=== PATIENT | male | born 1980 | race Caucasian/White ===

== ENCOUNTER 2017-03-24 13:26 | Emergency (ER) | payer OTHER ==
[~2017-03-24 13:26] MED LIST: ALBU1AER INH; BENZ100 PO; PRED20 PO
[2017-03-24 13:45] VITALS: BP 144/85; PULSE 110; RESP 20; TEMP 97.8; O2SAT 99
[2017-03-24] MEDS ORDERED: ACETAMINOPHEN/HYDROcodone 325 MG/5 MG TAB PO ONE (13:45)
--- NOTE | 2017-03-24 13:48 | PD ---
HPI Chief Complaint: Injury Time Seen by Provider: 13:45 Travel History International Travel<30 days: No Contact w/Intl Traveler<30days: No Traveled to known affect area: No History of Present Illness HPI 36-year-old male presents to the ER today, states he was lifting a water heater when he felt pain in his left shoulder. He is currently complaining of 7 out of 10 pain. He states it hurts with movements. He denies any other issues or injuries. Modifying Factors: None Associated Signs & Symptoms: Left shoulder pain, injury Risk Factors: None PFSH Past Medical History Diminished Hearing: No Kidney Stones: Yes Immunizations Current: No Past Surgical History Genitourinary Surgery: Yes (KIDNEY STENTS 2014 FOR STONES) Other Surgery: Yes (LITHOTRIPSY 03/12/2015) Social History Alcohol Use: Yes (VERY RARE - LESS THAN ONCE A MONTH ) Tobacco Use: Yes (<1 PPD) Substance Use: No Allergies-Medications (Allergen,Severity, Reaction): Coded Allergies: No Known Allergies (Unverified , 03/24/17) Reported Meds & Prescriptions Reported Meds & Active Scripts Active Lortab (Hydrocodone-Acetaminophen) 5-325 Mg Tab 1-2 Tab PO Q6H PRN Review of Systems Except as stated in HPI: all other systems reviewed are Neg Physical Exam Narrative GENERAL: Well-nourished, well-developed young white male patient in moderate distress. Awake and oriented 3.. SKIN: Focused skin assessment warm/dry. HEAD: Normocephalic. EYES: No scleral icterus. No injection or drainage. NECK: Supple, trachea midline. CARDIOVASCULAR: Regular rate and rhythm without murmurs, gallops, or rubs. RESPIRATORY: Breath sounds equal bilaterally. No accessory muscle use. GASTROINTESTINAL: Abdomen soft, non-tender, nondistended. EXTREMITIES: No clubbing, cyanosis, or edema. No joint tenderness, effusion, or edema noted. There is tenderness on palpation of the left lateral shoulder area at the proximal biceps area. No obvious deformities identified. Pain with shoulder ranging. Pulses are present and equal bilaterally. MUSCULOSKELETAL: No cyanosis, or edema. BACK: Nontender without obvious deformity. No CVA tenderness. Data Data Last Documented VS Vital Signs Date Time Temp Pulse Resp B/P Pulse Ox O2 Delivery O2 Flow Rate FiO2 03/24/17 16:20 79 16 148/79 98 Room Air 03/24/17 14:35 28 03/24/17 14:35 2.00 03/24/17 13:45 97.8 Orders Acetamin-Hydrocod 325-5 Mg ([place] 5-325 (03/24/17 13:45) Shoulder, Limited(2vws) (03/24/17 13:45) Hydromorphone Pf Inj (Dilaudid Pf Inj) (03/24/17 14:15) Ondansetron Inj (Zofran Inj) (03/24/17 14:15) Etomidate Inj (Amidate Inj) (03/24/17 14:15) Shoulder, Limited(2vws) (03/24/17 14:39) Ct Shoulder W/O Contrast (03/24/17 ) MDM Medical Decision Making Medical Screen Exam Complete: Yes Emergency Medical Condition: Yes Medical Record Reviewed: Yes Interpretation(s) Last 24 hours Impressions Shoulder X-Ray 03/24/17 1439 Signed Impressions: Service Date/Time: Friday, March 24, 2017 14:52 - CONCLUSION: Inferiorly displaced fracture of the greater tuberosity. Glenohumeral joint is now relocated. Bharat Aguilar MD Shoulder X-Ray 03/24/17 1345 Signed Impressions: Service Date/Time: Friday, March 24, 2017 13:55 - CONCLUSION: Anterior inferior dislocation of the glenohumeral joint with a questionable fracture posteriorly Bharat Aguilar MD Upper Extremity CT 03/24/17 0000 Draft Impressions: Service Date/Time: Friday, March 24, 2017 15:59 - CONCLUSION: Oblique slightly impacted fracture involving the entire greater tuberosity as described above Bharat Aguilar MD Differential Diagnosis Rotator cuff injury versus muscle strain versus acute fractures Narrative Course X-ray shows dislocation of the shoulder with notable Hill-Sachs fracture and posterior element notable on initial x-ray. Shoulder reduction was done under conscious sedation with Dr. Brown. Repeat x-ray was done showing good alignment and now is showing fracture of the greater tuberosity more clearly, shoulder reduction was successful. Case was discussed with Dr. Saunders who states that he would like me to do a CT of the shoulder for further evaluation of the fracture and he states that the patient will likely need further orthopedic surgery for this issue but that the patient can follow-up in his office in a few days. Patient is observed until completely awake and released with a sling and follow-up to orthopedics. Return for new issues as needed. The plan was discussed with the patient and he states understanding. Procedures Procedure Narrative Shoulder reduction: Patient is placed under conscious sedation with etomidate, please see sedation note by Dr. Brown. The left shoulder was reduced via traction countertraction method. Patient tolerated procedure well. X-ray was done which shows successful reduction. Diagnosis Primary Impression: Shoulder dislocation Additional Impression: Hill-Sachs fracture of left humerus Referrals: Twin Mehta MD Med/Other Pt SpecificInfo: Prescription(s) given Scripts Hydrocodone-Acetaminophen (Lortab)5-325 Mg Tab1-2 Tab PO Q6H PRN (PAIN) #20 TAB Ref 0 Prov:Jalen Boateng MD 03/24/17 Disposition: 01 DISCHARGE HOME Condition: Stable Jalen Boateng MD Mar 24, 2017 13:48
--- NOTE | 2017-03-24 14:08 | RADRPT ---
EXAM DATE/TIME: 03/24/2017 13:55 [facility] COMPARISON: No previous studies available for comparison. INDICATIONS : Left shoulder pain after picking up hot water heater MEDICAL HISTORY : None. SURGICAL HISTORY : None. ENCOUNTER: Initial ACUITY: 1 day PAIN SCORE: 10/10 LOCATION: Left shoulder FINDINGS: Two view examination of the left shoulder demonstrates anterior inferior shoulder dislocation of the glenohumeral joint. The there may be additional large Hill-Sachs fracture. Bony mineralization is no rmal. CONCLUSION: Anterior inferior dislocation of the glenohumeral joint with a questionable fracture posteriorly Bharat Aguilar MD on March 24, 2017 at 14:05 Board Certified Radiologist. This report was verified electronically.
[2017-03-24] MEDS ORDERED: ONDANSETRON HCL 4 MG/2 ML VIAL IV PUSH ONE (14:15)
[2017-03-24] MEDS ORDERED: ETOMIDATE 20 MG/10 ML VIAL IV PUSH ONE (14:15)
[2017-03-24] MEDS ORDERED: HYDROmorphone HCL PF 1 MG/ML VIAL IV PUSH ONE (14:15)
[2017-03-24 14:35] VITALS: O2SAT 98
--- NOTE | 2017-03-24 14:42 | PD ---
Data Data Last Documented VS Vital Signs Date Time Temp Pulse Resp B/P Pulse Ox O2 Delivery O2 Flow Rate FiO2 03/24/17 13:45 97.8 110 20 144/85 99 Orders Acetamin-Hydrocod 325-5 Mg ([place] 5-325 (03/24/17 13:45) Shoulder, Limited(2vws) (03/24/17 13:45) Hydromorphone Pf Inj (Dilaudid Pf Inj) (03/24/17 14:15) Ondansetron Inj (Zofran Inj) (03/24/17 14:15) Etomidate Inj (Amidate Inj) (03/24/17 14:15) Shoulder, Limited(2vws) (03/24/17 14:39) MDM Supervised Visit with ARSALAN: No Procedures Procedure Narrative After the risks and benefits were discussed the following procedure was performed: MODERATE SEDATION: The patient was placed on a lunchroom monitor and pulse oximetry. An ambu bag and suction was immediately available at bedside. The patient was monitored by the nurse and respiratory therapy. Oxygen saturation, heart rate and blood pressure were monitored. Procedural sedation was acheived using etomidate. The patient was observed until awake and alert. Procedural Sedation time in attendance was 10 minutes. Diagnosis Primary Impression: Shoulder dislocation Scripts No Active Prescriptions or Reported Meds Tonya Ambriz MD Mar 24, 2017 14:41
[2017-03-24 15:00] VITALS: BP 133/92; PULSE 77; RESP 16; O2SAT 98
--- NOTE | 2017-03-24 15:11 | RADRPT ---
EXAM DATE/TIME: 03/24/2017 14:52 [facility] COMPARISON: SHOULDER LEFT LTD (2VWS), March 24, 2017, 13:55. INDICATIONS : Post reduction left shoulder MEDICAL HISTORY : None. SURGICAL HISTORY : None. ENCOUNTER: Subsequent ACUITY: 1 day PAIN SCORE: 0/10 LOCATION: Left shoulder FINDINGS: Two view examination of the left shoulder demonstrates no evidence of dislocation. There is a inferio rly displaced fracture involving the greater tuberosity measuring 4.0 x 1.9 cm. The glenohumeral an d acromioclavicular joints are now maintained. Bony mineralization is normal. CONCLUSION: Inferiorly displaced fracture of the greater tuberosity. Glenohumeral joint is now relocated. Bharat Aguilar MD on March 24, 2017 at 15:08 Board Certified Radiologist. This report was verified electronically.
[2017-03-24] MEDS ORDERED: HYDR-3533 PO (16:09)
[2017-03-24 16:20] VITALS: BP 148/79; PULSE 79; RESP 16; O2SAT 98
--- NOTE | 2017-03-24 16:47 | RADRPT ---
EXAM DATE/TIME: 03/24/2017 15:59 [facility] COMPARISON: No previous studies available for comparison. INDICATIONS : Trauma, injury while moving a water heater. Post reduction from dislocation. RADIATION DOSE: 19.58 CTDIvol (mGy) MEDICAL HISTORY : None SURGICAL HISTORY : None. ENCOUNTER: Initial ACUITY: 1 day PAIN SCALE: 9/10 LOCATION: Left proximal humerus TECHNIQUE: Volumetric scanning of the shoulder was performed. Using automated exposure control and adjustment o f the mA and/or kV according to patient size, radiation dose was kept as low as reasonably achievable to obtain optimal diagnostic quality images. DICOM format image data is available electronically f or review and comparison. FINDINGS: BONES: There is a pericardial fracture through the greater tuberosity. On the coronal images the bone fragme nt measures 1.5 x 3.2 cm across. It measures 3.6 cm in AP dimension and involves a majority of the ro tator cuff insertion. The glenoid is intact. JOINTS: No evidence of joint narrowing or effusion. The lateral clavicle is superiorly displaced from the acr omion could be chronic. SOFT TISSUES: Muscles, tendons, and neurovascular structures are grossly unremarkable. The integrity of the rotato r cuff tendons cannot be reliably evaluated on CT without intra-articular contrast. No evidence of m ass, organized fluid collection, or foreign body. CONCLUSION: Oblique slightly impacted fracture involving the entire greater tuberosity as described above Bharat Aguilar MD on March 24, 2017 at 16:43 Board Certified Radiologist. This report was verified electronically.
== END 2017-03-24 17:05 | disposition home or self-care (01) ==
LOC: PHED 13:26
DX: S43.085A Other dislocation of left shoulder joint, initial encounter (principal); S42.292A Other displaced fracture of upper end of left humerus, initial encounter for closed fracture; X50.9XXA Other and unspecified overexertion or strenuous movements or postures, initial encounter; Y93.89 Activity, other specified
CPT/HCPCS: 23650; 73030; 73200; 96374; 96375; 99152; 99285; J1170; J2405

== ENCOUNTER 2017-04-21 10:12 | Emergency (ER) | payer OTHER ==
[~2017-04-21] VITALS: Ht 185.4 cm; Wt 88.5 kg
[~2017-04-21 10:12] MED LIST changes: -ALBU1AER INH; -BENZ100 PO; +HYDR-3533 PO; -PRED20 PO
[2017-04-21 10:13] VITALS: BP 144/90; PULSE 78; RESP 18; TEMP 98.9; O2SAT 98
[2017-04-21] MEDS ORDERED: IBUP800T23 PO (10:47)
--- NOTE | 2017-04-21 10:47 | PD ---
HPI Chief Complaint: Injury Time Seen by Provider: 10:45 Travel History International Travel<30 days: No Contact w/Intl Traveler<30days: No Traveled to known affect area: No History of Present Illness HPI 36-year-old male presents to the emergency department in need of follow-up after having a left shoulder fracture and dislocation and was seen here on March 24. He says he has tried to follow up with Dr. Zimmerman but they will not accept his insurance. He has tried following up with his primary care provider with his current insurance and they will not see him also. 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 He denies fever, vomiting. Reports severe pain, especially at night while trying to sleep. Says he's pretty good with pain throughout the day. Denies paresthesias, loss of sensation to the affected extremity. Reports decreased range of motion at the left shoulder. Symptoms are mild in severity. He has been occasionally using his arm sling for support. Has no other medical complaints. No other modifying factors or associated signs and symptoms. PFSH Past Medical History Diminished Hearing: No Kidney Stones: Yes Immunizations Current: No Past Surgical History Genitourinary Surgery: Yes (KIDNEY STENTS 2014 FOR STONES) Other Surgery: Yes (LITHOTRIPSY 03/12/2015) Social History Alcohol Use: Yes (VERY RARE - LESS THAN ONCE A MONTH ) Tobacco Use: Yes (<1 PPD) Substance Use: No Allergies-Medications (Allergen,Severity, Reaction): Coded Allergies: No Known Allergies (Unverified , 04/21/17) Reported Meds & Prescriptions Reported Meds & Active Scripts Active Lortab (Hydrocodone-Acetaminophen) 5-325 Mg Tab 1-2 Tab PO Q6H PRN Ibuprofen 800 Mg Tab 800 Mg PO Q6HR PRN Review of Systems Except as stated in HPI: all other systems reviewed are Neg Physical Exam Narrative GENERAL: Well-nourished, well-developed male patient, in no acute distress SKIN: Warm and dry. HEAD: Atraumatic. Normocephalic. EYES: Pupils equal and round. No scleral icterus. No injection or drainage. ENT: Mucosa pink and moist. Airway patent. NECK: Supple. Trachea midline. CARDIOVASCULAR: Regular rate. RESPIRATORY: No accessory muscle use. GASTROINTESTINAL: Flat. MUSCULOSKELETAL: Left shoulder without erythema, edema, ecchymosis; there is stage IV ecchymosis noted to the biceps area; left shoulder with approximately 45 abduction; with limited range of motion; shoulders equal; joint stable. Left upper extremity is supple and non-tense with 2+ radial pulses and sensory intact and without erythema or edema. No obvious deformities. No clubbing. No cyanosis. No edema. NEUROLOGICAL: Awake and alert. Oriented 3. No obvious cranial nerve deficits. Motor grossly within normal limits. Normal speech. PSYCHIATRIC: Appropriate mood and affect; insight and judgment normal. Data Data Last Documented VS Vital Signs Date Time Temp Pulse Resp B/P Pulse Ox O2 Delivery O2 Flow Rate FiO2 04/21/17 10:13 98.9 78 18 144/90 98 Room Air Orders Mandatory Outpatient Referral (04/21/17 10:48) [facility] Medical Decision Making Medical Screen Exam Complete: Yes Emergency Medical Condition: Yes Medical Record Reviewed: Yes Differential Diagnosis Left shoulder fracture, follow-up, medical clearance Narrative Course 36-year-old male needing follow-up for left shoulder fracture and dislocation that occurred on March 24 while at work. He is discharged following up with Dr. Saunders and has been able to secondary to insurance purposes and his workman' s comp claim being denied. I reviewed his medical record and it did suggest surgery wouldn't be needed on an outpatient basis. I entered a mandatory outpatient referral for the patient to follow-up. Lortab and ibuprofen prescribed for home. Patient has an arm sling for support. Instructed patient to follow up with Dr. Saunders or orthopedic surgeon of choice if he does not qualify for mandatory outpatient referral. Instructed patient to follow up with primary care provider. Patient verbalizes understanding and agreement with treatment plan. Patient is medically cleared and stable for discharge. Discussed reasons to return to the emergency department. Patient agrees with treatment plan. The patients vital signs are stable and the patient is stable for outpatient follow-up and treatment. Patient discharged home, stable and in no acute distress. Diagnosis Primary Impression: Hill-Sachs fracture of left humerus Qualified Code: S42.292D - Closed Hill-Sachs fracture of left humerus with routine healing, subsequent encounter Referrals: Twin Mehta MD Primary Care Physician Patient Instructions: General Instructions Additional Instructions: Tylenol or ibuprofen as needed and as directed to reduce pain and inflammation Rest, ice, and compress extremity to decrease pain and inflammation Arm sling for support Avoid aggravating activity; increase activity as tolerated Follow-up with primary care provider Follow-up with orthopedics, Dr. Bautista Return to the emergency department immediately with worsening symptoms Med/Other Pt SpecificInfo: Prescription(s) given Scripts Hydrocodone-Acetaminophen (Lortab)5-325 Mg Tab1-2 Tab PO Q6H PRN (PAIN) #20 TAB Ref 0 Prov:Laure Gaytan DO 04/21/17 Ibuprofen 800 Mg [id number] Mg PO Q6HR PRN (PAIN) #30 TAB Ref 0 Prov:Esperanza Chinchilla 04/21/17 Disposition: 01 DISCHARGE HOME Condition: Stable Esperanza Chinchilla Apr 21, 2017 10:47
[2017-04-21] MEDS ORDERED: HYDR-3533 PO (10:49)
== END 2017-04-21 11:30 | disposition home or self-care (01) ==
LOC: NEPK 10:12
DX: S42.292D Other displaced fracture of upper end of left humerus, subsequent encounter for fracture with routine healing (principal); X58.XXXD Exposure to other specified factors, subsequent encounter
CPT/HCPCS: 99283